=== PATIENT | male | born 1955 | race Native Hawaiian/Other Pacific Islander ===

== ENCOUNTER 2016-12-07 07:31 | Outpatient (CLI) | payer OTHER | END 2016-12-07 07:36 | disposition short-term general hospital (02) | LOC: AMB 07:31 | DX: M54.89 Other dorsalgia (principal); M79.602 Pain in left arm; M79.601 Pain in right arm; V49.88XA Car occupant (driver) (passenger) injured in other specified transport accidents, initial encounter; Y92.414 Local residential or business street as the place of occurrence of the external cause | CPT/HCPCS: A0425; A0429 ==

== ENCOUNTER 2016-12-07 07:36 | Emergency (ER) | payer OTHER ==
[~2016-12-07] VITALS: Ht 175.3 cm; Wt 83.9 kg
== END 2016-12-07 09:44 | disposition home or self-care (01) ==
LOC: ED 07:36
DX: S16.1XXA Strain of muscle, fascia and tendon at neck level, initial encounter (principal); S39.012A Strain of muscle, fascia and tendon of lower back, initial encounter; R07.89 Other chest pain; M25.552 Pain in left hip; V43.52XA Car driver injured in collision with other type car in traffic accident, initial encounter
CPT/HCPCS: 99283

== ENCOUNTER 2019-05-03 18:37 | Emergency (ER) | payer OTHER ==
[~2019-05-03] VITALS: Ht 175.3 cm; Wt 83.9 kg
[2019-05-03 20:10] VITALS: BP 134/82; TEMP 97.7
== END 2019-05-03 20:11 | disposition home or self-care (01) ==
LOC: ED 18:37
DX: B02.9 Zoster without complications (principal)
CPT/HCPCS: 96372; 99282; 99283; J1885

== ENCOUNTER 2022-08-03 09:15 | Outpatient (CLI) | payer OTHER | END 2022-08-03 20:39 | disposition home or self-care (01) | LOC: CT 09:15 | PROVIDERS: ATTEND Internal Medicine | DX: G44.86 Cervicogenic headache (principal) ==